=== PATIENT | female | born 1980 ===

== ENCOUNTER → 2019-04-16 | Outpatient (CLI) | payer OTHER ==
--- NOTE | 2019-04-16 16:52 | KCIC ---
STUDY: MRI of the left knee without contrast INDICATION: Generalized pain but greatest laterally. The patient reports a pop after running with resultant knee swelling. COMPARISON: No prior cross-sectional imaging available for review. TECHNIQUE: Multiplanar MR imaging of the left knee performed without the use of intravenous or intra-articular contrast. FINDINGS: Menisci: Intact medial and lateral menisci. Cruciate ligaments: Intact ACL and PCL. Collateral ligaments: No acute injury of the medial or lateral collateral ligaments. The IT band is intact. Tendons: Mild distal patellar tendinosis. The extensor tendon complex is otherwise unremarkable, as are the additional tendons at the knee. 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 Chondrosis extends across the median ridge. 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 Lateral compartment: No focal chondral defect. Medial compartment: High-grade focus of chondral loss approaching full-thickness at the weightbearing medial femoral condyle, image 17 series 5, measuring approximately 7 mm AP by 4 mm mediolateral. Mild chondrosis at the posterior nonweightbearing medial femoral condyle, image 18 series 5. Chondrosis at the anterior aspect of the weightbearing medial femoral condyle, image 17 series 7. Bones: Small joint line osteophytes. No acute fracture. Patchy and more confluent intermediate T1 marrow signal change involving the distal femur and proximal tibial diaphyses favored related to red marrow reconversion. Scattered areas of subchondral marrow edema relating to overlying chondrosis such as at the lateral trochlea, patella median ridge and lateral patellar facet. Miscellaneous: Very small volume knee joint fluid. IMPRESSION: 1. 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 Scattered areas of associated subchondral marrow edema. Small joint line osteophytes. 2. Intact cruciate ligaments and menisci. 3. Mild distal patellar tendinosis. Electronically signed by: SHILPI LEPE MD (04/16/2019 4:49 PM) [id number]
== END | disposition home or self-care (01) ==
LOC: KCIC MRI 15:53
PROVIDERS: ATTEND Orthopaedic Surgery Sports Medicine
DX: M25.762 Osteophyte, left knee (principal); M76.52 Patellar tendinitis, left knee
CPT/HCPCS: 73721